=== PATIENT | female | born 1995 | race Caucasian/White ===

== ENCOUNTER 2017-04-30 03:03 | Emergency (ER) | payer OTHER ==
[2017-04-30] MEDS ORDERED: LIDOCAINE 2% VISCOUS SOLN 20 ML UDCUP PO ONE (03:40)
[2017-04-30] MEDS ORDERED: MAG HYDROX/AL HYDROX/SIMETH SUSP 30 ML UDCUP PO ONE (03:40)
[2017-04-30] MEDS ORDERED: NORMAL SALINE 1000 ML 1,000 ML IV ONE ×2 (03:40→06:05)
[2017-04-30] MEDS ORDERED: METOCLOPRAMIDE HCL ORAL SOLN 10 MG/10 ML UDCUP PO ONE (03:40)
--- NOTE | 2017-04-30 04:03 | ER Document Report ---
ED GI/ - General Chief Complaint: Chest Pain Stated Complaint: CHEST PAIN Time Seen by Provider: 04/30/17 03:27 Notes: Patient is a 21-year-old female comes emergency department for chief complaint of vomiting and a burning pain in the top of her abdomen, chest, and throat. She states she vomited 5 times today. She states over the past week she has vomited frequently. She is at 9 weeks gestation. She was seen recently at [facility], given Zofran and Phenergan but states that she just vomits it up. She denies cramping, pain of the lower abdomen, vaginal bleeding, flank pain, dysuria, vaginal discharge. She denies fever. She is on no daily medications other than prenatals otherwise, she denies any surgeries or medical history otherwise. TRAVEL OUTSIDE OF THE [place] IN LAST 30 DAYS: No - Related Data Allergies/Adverse Reactions: No Known Allergies Allergy (Verified 04/30/17 03:04) Past Medical History - General Information source: Patient - Social History Smoking Status: Never Smoker Frequency of alcohol use: None Drug Abuse: None Lives with: Family Family History: Reviewed & Not Pertinent - Medical History Medical History: Negative Surgical Hx: Negative - Immunizations Immunizations up to date: Yes Hx Diphtheria, Pertussis, Tetanus Vaccination: Yes Review of Systems - Review of Systems Constitutional: See HPI EENT: No symptoms reported Cardiovascular: See HPI Respiratory: No symptoms reported Gastrointestinal: See HPI Genitourinary: See HPI Female Genitourinary: See HPI Musculoskeletal: No symptoms reported Skin: No symptoms reported Hematologic/Lymphatic: No symptoms reported Neurological/Psychological: No symptoms reported Physical Exam - Vital signs Vitals: Temp Pulse Resp BP Pulse Ox 98.2 F 84 18 117/72 100 04/30/17 03:09 04/30/17 03:09 04/30/17 03:09 04/30/17 03:09 04/30/17 03:09 - General General appearance: Appears well In distress: None - Patient is thin but otherwise unremarkable in appearance - HEENT Head: Normocephalic, Atraumatic Eyes: Normal Conjunctiva: Normal Extraocular movements intact: Yes Eyelashes: Normal Pupils: PERRL Mucous membranes: Dry Pharynx: Normal Neck: Normal - Respiratory Respiratory status: No respiratory distress. No: Respiratory distress Breath sounds: Normal. No: Decreased air movement - Cardiovascular Rhythm: Regular. No: Tachycardia Heart sounds: Normal auscultation, S1 appreciated, S2 appreciated Gallop: None auscultated Normal capillary refill: Yes - Abdominal Inspection: Normal Tenderness: Tender - Minimal generalized upper abdominal tenderness, lower abdomen is completely benign. No: McBurney's point, Tay's sign, Guarding - Back Back: Normal, Nontender. No: Tender - Extremities General upper extremity: Normal inspection, Nontender, Normal strength, Normal temperature General lower extremity: Normal inspection, Nontender, Normal strength, Normal temperature. No: Edema - Neurological Neuro grossly intact: Yes Cognition: Normal Orientation: AAOx4 Andrey Coma Scale Eye Opening: Spontaneous Andrey Coma Scale Verbal: Oriented Buchanan Coma Scale Motor: Obeys Commands Buchanan Coma Scale Total: 15 Speech: Normal Motor strength normal: LUE, RUE, LLE, RLE Sensory: Normal - Psychological Associated symptoms: Normal affect, Normal mood - Skin Skin Moisture: Dry Skin Color: Pale Course - Re-evaluation Re-evalutation: Patient is well-appearing, unremarkable vital signs, generalized upper abdominal tenderness which is nonspecific with no guarding. She does appear slightly pale. Dry mucous membranes. Given IV fluids, will provide with medication. CBC generally unremarkable, chemistry generally unremarkable with slightly low bicarbonate, urinalysis shows 80 ketones and elevated specific gravity but no infection. Positive test. No lower abdominal pain, bleeding, or signs of ectopic . EKG unremarkable. After GI cocktail patient's symptoms resolved. Slightly after this patient stating her stomach was hurting a little bit, given Carafate and then symptoms completely resolved. She is tolerating fluids without any difficulty now. She states she feels great now. Provided with medications, she has METALLURGICAL ENGINEER follow-up , discussed return precautions, patient states gratefulness and agreement - Vital Signs Vital signs: Temp Pulse Resp BP Pulse Ox 98.2 F 84 13 116/66 100 04/30/17 03:09 04/30/17 03:09 04/30/17 07:01 04/30/17 07:00 04/30/17 07:01 - Laboratory Result Diagrams: 04/30/17 03:56 04/30/17 03:56 Laboratory results interpreted by me: 04/30/17 04/30/17 04/30/17 03:56 03:56 05:05 WBC 12.6 H Absolute Neutrophils 9.4 H Carbon Dioxide 21 L Calcium 10.4 H Urine Protein 30 H Urine Ketones 80 H Urine HCG, Qual POSITIVE H Discharge - Discharge Clinical Impression: Vomiting affecting , Dehydration Condition: Stable Disposition: HOME, SELF-CARE Additional Instructions: You have been rehydrated, continue rehydration, because of upper gastrointestinal tract pain I recommend taking the Pepcid and Carafate for the next several days. Start with bland food and slowly progress. Take Zofran for nausea, if needed use the Phenergan suppository. Benadryl can also help with nausea. Follow-up with primary care/METALLURGICAL ENGINEER. Return if you worsen including uncontrolled vomiting, fever, severe abdominal pain, vomiting blood, black stools, or any other concerning or worsening symptoms. Prescriptions: Famotidine [Pepcid 20 mg Tablet] 20 mg PO BID #20 tablet Ondansetron [Zofran Odt 4 mg Tablet] 1 - 2 tab PO Q4H PRN #20 tab.rapdis PRN Reason: For Nausea/Vomiting Promethazine HCl [Phenergan 25 mg Supp.rect] 1 supp NC Q6H #20 supp.rect Sucralfate [Carafate 1 gm Tablet] 1 gm PO QID #20 tablet
[2017-04-30 04:12] LABS: ABSOLUTE LYMPHOCYTES (AUTO) 2.2 10^3/uL (0.5-4.7); ABSOLUTE NEUT (AUTO) 9.4 10^3/uL (1.7-8.2); BASOPHILS % (AUTO) 0.4 % (0-2); EOSINOPHILS % (AUTO) 0.2 % (0-6); HEMATOCRIT 40.7 % (36.0-47.0); HEMOGLOBIN 14.2 g/dL (12.0-15.5); LYMPHOCYTES % (AUTO) 17.2 % (13-45); MEAN CORPUSCULAR HEMOGLOBIN 31.2 pg (27.0-33.4); MEAN CORPUSCULAR HGB CONC 34.8 g/dL (32.0-36.0); MEAN CORPUSCULAR VOLUME 90 fl (80-97); MONOCYTES % (AUTO) 7.6 % (3-13); PLATELET COUNT 262 10^3/uL (150-450); RED BLOOD COUNT 4.54 10^6/uL (3.72-5.28); RED CELL DISTRIBUTION WIDTH 13.4 % (11.5-14.0); SEGMENTED NEUTROPHILS % (AUTO) 74.6 % (42-78); TOTAL CELLS COUNTED % (AUTO) 100 %; WHITE BLOOD COUNT 12.6 10^3/uL (4.0-10.5)
[2017-04-30 04:29] LABS: BLOOD UREA NITROGEN 7 mg/dL (7-20); CALCIUM 10.4 mg/dL (8.4-10.2); CARBON DIOXIDE 21 mmol/L (22-30); CHLORIDE 102 mmol/L (98-107); GLUCOSE 83 mg/dL (75-110); POTASSIUM 3.8 mmol/L (3.6-5.0)
[2017-04-30 04:30] LABS: ALANINE AMINOTRANSFERASE 24 U/L (9-52); ALKALINE PHOSPHATASE 43 U/L (38-126); ANION GAP 16 (5-19); ASPARTATE AMINO TRANSFERASE 19 U/L (14-36); BILIRUBIN,DIRECT 0.3 mg/dL (0.0-0.4); BILIRUBIN,TOTAL 0.6 mg/dL (0.2-1.3)
[2017-04-30] MEDS ORDERED: ONDANSETRON HCL INJ/PF 4 MG/2 ML SDV IV ONE (04:57)
[2017-04-30] MEDS ORDERED: SUCRALFATE 1 GM TABLET PO ONE (04:57)
[2017-04-30 05:58] LABS: APPEARANCE,URINE SLIGHTLY-CLOUDY; BILIRUBIN,URINE NEGATIVE (NEGATIVE); COLOR,URINE YELLOW; GLUCOSE, URINE NEGATIVE (NEGATIVE); KETONES,URINE 80 mg/dL (NEGATIVE); LEUKOCYTE ESTERASE,URINE NEGATIVE (NEGATIVE); NITRITE,URINE NEGATIVE (NEGATIVE); PROTEIN,URINE 30 mg/dL (NEGATIVE); URINE SPECIFIC GRAVITY 1.029; UROBILINOGEN,URINE NEGATIVE mg/dL (<2.0)
[2017-04-30 07:39] VITALS: BP 118/80
--- NOTE | 2017-04-30 08:06 | EKG REPORT ---
SEVERITY:- NORMAL ECG - SINUS RHYTHM : Confirmed by: John Pizano MD 30-Apr-2017 08:06:19
== END 2017-04-30 07:39 | disposition home or self-care (01) ==
LOC: ER 03:03
DX: O99.281 Endocrine, nutritional and metabolic diseases complicating pregnancy, first trimester (principal); O21.9 Vomiting of pregnancy, unspecified; O99.89 Other specified diseases and conditions complicating pregnancy, childbirth and the puerperium; R07.9 Chest pain, unspecified; R10.9 Unspecified abdominal pain; R07.0 Pain in throat; Z3A.09 9 weeks gestation of pregnancy
CPT/HCPCS: 93005; 99285; 96361; 96374; 36415; 85025; 81025; 80053; 81001; 93010; J3490; J2405; J7030

== ENCOUNTER 2017-10-21 02:01 | Observation (INO) | payer OTHER ==
[2017-10-21 02:33] LABS: AMORPHOUS SEDIMENT,URINE TRACE /HPF; APPEARANCE,URINE SLIGHTLY-CLOUDY; BILIRUBIN,URINE NEGATIVE (NEGATIVE); COLOR,URINE YELLOW; GLUCOSE, URINE NEGATIVE (NEGATIVE); KETONES,URINE 20 mg/dL (NEGATIVE); LEUKOCYTE ESTERASE,URINE MODERATE (NEGATIVE); NITRITE,URINE NEGATIVE (NEGATIVE); PROTEIN,URINE NEGATIVE (NEGATIVE); URINE SPECIFIC GRAVITY 1.009; UROBILINOGEN,URINE NEGATIVE mg/dL (<2.0)
[2017-10-21] MEDS ORDERED: MAGNESIUM SULFATE 4 GM/100 ML RTUPB IV ONE ×2 (02:36→02:55)
[2017-10-21] MEDS ORDERED: BETAMET ACET/BETAMET NA INJ 6 MG/1 ML IM ONE (02:40)
[2017-10-21] MEDS ORDERED: BETAMET ACET/BETAMET NA INJ 6 MG/1 ML ONE (02:42)
[2017-10-21 02:45] LABS: URINE AMPHETAMINES SCREEN NEGATIVE; URINE BARBITURATES SCREEN NEGATIVE; URINE BENZODIAZEPINES SCREEN NEGATIVE; URINE COCAINE SCREEN NEGATIVE; URINE MARIJUANA (THC) SCREEN NEGATIVE; URINE METHADONE SCREEN NEGATIVE; URINE PHENCYCLIDINE SCREEN NEGATIVE
[2017-10-21] MEDS: RINGERS SOLUTION,LACTATED 1,000 ML IV PRN ×2 (02:52→17:12)
[2017-10-21] MEDS ORDERED: MAGNESIUM SULFATE 20 GM/500 ML RTUINJ IV ONE ×3 (02:55→23:57)
[2017-10-21 03:11] LABS: ABSOLUTE LYMPHOCYTES (AUTO) 2.2 10^3/uL (0.5-4.7); ABSOLUTE MONOCYTES (AUTO) 0.8 10^3/uL (0.1-1.4); ABSOLUTE NEUT (AUTO) 7.5 10^3/uL (1.7-8.2); BASOPHILS % (AUTO) 0.5 % (0-2); EOSINOPHILS % (AUTO) 0.2 % (0-6); HEMATOCRIT 30.4 % (36.0-47.0); HEMOGLOBIN 10.7 g/dL (12.0-15.5); LYMPHOCYTES % (AUTO) 21.1 % (13-45); MEAN CORPUSCULAR HEMOGLOBIN 31.6 pg (27.0-33.4); MEAN CORPUSCULAR HGB CONC 35.2 g/dL (32.0-36.0); MEAN CORPUSCULAR VOLUME 90 fl (80-97); MONOCYTES % (AUTO) 7.5 % (3-13); PLATELET COUNT 211 10^3/uL (150-450); RED BLOOD COUNT 3.38 10^6/uL (3.72-5.28); RED CELL DISTRIBUTION WIDTH 14.3 % (11.5-14.0); SEGMENTED NEUTROPHILS % (AUTO) 70.7 % (42-78); TOTAL CELLS COUNTED % (AUTO) 100 %; WHITE BLOOD COUNT 10.6 10^3/uL (4.0-10.5)
[2017-10-21] MEDS: MAGNESIUM SULFATE 20 GM/500 ML RTUINJ IV PRN ×2 (03:24→13:25)
[2017-10-21] MEDS ORDERED: MISOPROSTOL 0.2 MG TABLET ONE (03:31)
[2017-10-21] MEDS ORDERED: OXYTOCIN/NORMAL SALINE 0 UNIT/0 ML RTUINJ ONE (03:31)
[2017-10-21] MEDS ORDERED: LIDOCAINE 1% INJ-PF (10 MG/ML) 30 ML SDV ONE (03:31)
[2017-10-21] MEDS ORDERED: PENICILLIN G-K 5 MILLION UNIT VIAL ONE ×2 (03:57→08:06)
--- NOTE | 2017-10-21 08:27 | Admission Physical ---
Datetime Report Generated by CPN: 10/21/2017 04:04 CURRENT ADMISSION Chief Complaint: Uterine Contractions Indication for Induction: Not Applicable Admit Impression : , Intrauterine ; Observation/Evaluation Admit Plan: Admit to Unit Admit Plan- Other: begin magnesium, steroids and antibiotics. ALLERGIES Medication Allergies: No Medication Allergies: No Known Allergies (04/30/2017) Latex: No Latex Allergies Food Allergies: N/A Environmental Allergies: N/A OBSTETRICAL HISTORY EDC: 12/04/2017 00:00 : 5 Para: 4 Term: 3 : 1 SAB: 0 IAB: 0 Ectopic: 0 Livin Cesareans: 0 VBACs: 0 Multiple Births: 0 Gestational Diabetes: No Rh Sensitization: No Incompetent Cervix: No BRANDY: No Infertility: No ART Treatment: No Uterine Anomaly: No IUGR: No Hx Previous C/S: No Macrosomia: No Hx Loss/Stillborn: No PIH: No Hx : No Placenta Previa/Abruption: No Depression/PP Depression: No PTL/PROM: No Post Hemorrhage: No Current Procedures: Ultrasound; NST Obstetrical History Comments: G1- 2009 at term, 8lbs 7oz, male, epidural G2- 2011 at term, 7lbs 3oz, male G3- 2014 at term, 8lbs 14oz male G4- 2016 at 36 weeks, 7lbs 3oz, male G5- current SEE RECORDS Alcohol: No Marijuana : No Cocaine: No Other Illicit Drugs: No Cigarettes: Never Smoker. [id number] MEDICAL HISTORY Diabetes: No Blood Transfusion: No Pulmonary Disease (Asthma, TB): No Breast Disease: No Hypertension: No Fish Checker Surgery: No Heart Disease: No Hosp/Surgery: Yes Autoimmune Disorder: No Anesthetic Complications: No Kidney Disease: No Abnormal Pap Smear: No Neuro/Epilepsy: No Psychiatric Disorders: No Other Medical Diseases: No Hepatitis/Liver Disease: No Significant Family History: No Varicosities/Phlebitis: No Trauma/Violence : No Thyroid Dysfunction: No Medical History Comments: childbirth x4, celiacs disease, Isoimmunization G2-G4 INFECTIOUS HISTORY Gonorrhea: No Genital Herpes: No Chlamydia: No Tuberculosis: No Syphilis: No Hepatitis: No HIV/AIDS Exposure: No Rash or Viral Illness: No HPV: Yes PHYSICAL EXAM General: Normal HEENT: Normal Neurologic: Normal Thyroid: Normal Heart: Normal Lungs: Normal Breast: Deferred Back: Normal Abdomen: Normal Genitourinary Exam: Normal Extremities: Normal DTRs: Normal Pelvic Type: Adequate Vital Signs: Reviewed VAGINAL EXAM Dilatation: 2 Effacement: 50 Station: -2 FETUS A EGA: 33.5 Monitoring: External US FHR- Baseline: 130 Variability: Moderate 6-25bpm Decelerations: None FHR Category: Category I Presentation: Vertex Admit Comment: Admit and plan as above PLANS FOR LABOR AND DELIVERY Labor and Delivery: None Pain Management: None Feeding Preference: Breast Benefit of Breast Feed Discussed: Yes Circumcision: N/A INFORMED CONSENT Signature: with User ID: [email or web address]
[2017-10-21 09:06] LABS: CHLAM PCR NOT DETECTED (NOT DETECT)
[2017-10-21 09:15] LABS: GON PCR NOT DETECTED (NOT DETECT)
[2017-10-21] MEDS ORDERED: ACETAMINOPHEN 325 MG TABLET PO PRN (10:51)
[2017-10-21] MEDS ORDERED: ACETAMINOPHEN 325 MG TABLET ONE (10:55)
--- NOTE | 2017-10-21 12:16 | L&D Progress Notes ---
PROGRESS NOTES Datetime Report Generated by CPN: 10/21/2017 12:15 PROGRESS NOTE Comment: Discussed POC with pt and hsb, irreg uc's, Cat 1 strip, lst baby was delivered at 36 weeks VAGINAL EXAM Dilatation: 2 Effacement: 50 Station: -2 FETUS A : 34.0 Presentation: Vertex SIGNATURE SIGNATURE: [id number] SIGNATURE: [id number] Assignment: Adriel Fonseca MD Signature: with User ID: [email or web address] : with User ID: [email or web address]
[2017-10-21] MEDS ORDERED: FLUCONAZOLE 100 MG TABLET PO ONE (14:45)
[2017-10-22] MEDS: MAGNESIUM SULFATE 20 GM/500 ML RTUINJ IV PRN
[2017-10-22] MEDS ORDERED: ACETAMINOPHEN 325 MG TABLET ONE (00:16)
[2017-10-22] MEDS ORDERED: BETAMET ACET/BETAMET NA INJ 6 MG/1 ML IM ONE (02:20)
[2017-10-22] MEDS ORDERED: BETAMET ACET/BETAMET NA INJ 6 MG/1 ML ONE ×2 (03:16→04:42)
[2017-10-22] MEDS ORDERED: NIFEDIPINE 10 MG CAPSULE ONE (08:46)
[2017-10-22] MEDS ORDERED: NIFEDIPINE 10 MG CAPSULE PO ONE (08:48)
--- NOTE | 2017-10-22 09:09 | L&D Progress Notes ---
PROGRESS NOTES Datetime Report Generated by CPN: 10/22/2017 09:09 PROGRESS NOTE Impression Other: IUP @ 33w6d Procedures: Sterile Vag Exam Plan: Discharge Informed Consent Obtained: Risks, Benefits and Alternatives Discussed Vital Signs : Reviewed; Within Normal Limits Comment: S: pt. comfortable reports decreased in pain and intensity of contractions O:vss, cervix as stated, irregular uc A: IUP @ 33w6d status post mag and betamethasone for suspected labor- stable P: Discussed with Dr. Levine, d/c home with procardia 10mg q4hr for contractions prn, first dose now. Strict PTL precautions reviewed. Pt. asked questions and verbalized understanding, keep scheduled appt for 10/26. RTC/L_D earlier prn VAGINAL EXAM Dilatation: 3 Effacement: 60 Station: -2 Contractions: irregular MEMBRANES Membranes: Intact FETUS A FHR - Baseline: 135 Monitoring: External US Variability: Moderate 6-25bpm Accelerations: 15X15 Decelerations: None FHR Category: Category I FETUS C SIGNATURE: [id number];[id number] Assignment: Daiana Levine MD Signature: with User ID: [email or web address] : with User ID: [email or web address]
== END 2017-10-22 09:40 | disposition home or self-care (01) ==
LOC: LC 02:01 → LR 03:01
PROVIDERS: ADMIT Obstetrics & Gynecology; ATTEND Obstetrics & Gynecology
PROC: 4A0HXCZ Measurement of Products of Conception, Cardiac Rate, External Approach (ICD-10-PCS; principal; 2017-10-21)
DX: O60.03 Preterm labor without delivery, third trimester (principal); O09.213 Supervision of pregnancy with history of pre-term labor, third trimester; O98.813 Other maternal infectious and parasitic diseases complicating pregnancy, third trimester; B37.9 Candidiasis, unspecified; O26.893 Other specified pregnancy related conditions, third trimester; K90.0 Celiac disease; Z3A.33 33 weeks gestation of pregnancy
CPT/HCPCS: 59025; 86900; 86901; 36415; 86850; 86922; 85025; 86592; 81001; 87081; 80307; 86920; 87491; 87591; J3475 ×2; J3490; J2540; J0702 ×2; J2590

== ENCOUNTER → 2017-11-08 | Outpatient (CLI) | payer OTHER | LOC: OD 17:02 | PROVIDERS: ATTEND Midwife | DX: O99.810 Abnormal glucose complicating pregnancy (principal) | CPT/HCPCS: 36415; 83036 ==

== ENCOUNTER 2017-11-23 08:21 | Outpatient (CLI) | payer OTHER ==
[2017-11-23 08:50] LABS: APPEARANCE,URINE SLIGHTLY HAZY; BILIRUBIN,URINE NEGATIVE (NEGATIVE); COLOR,URINE YELLOW; GLUCOSE, URINE NEGATIVE (NEGATIVE); KETONES,URINE 100 mg/dL (NEGATIVE); LEUKOCYTE ESTERASE,URINE SMALL (NEGATIVE); NITRITE,URINE NEGATIVE (NEGATIVE); PROTEIN,URINE 30 mg/dL (NEGATIVE); UROBILINOGEN,URINE NEGATIVE mg/dL (<2.0)
[2017-11-23 09:09] LABS: URINE AMPHETAMINES SCREEN NEGATIVE; URINE BARBITURATES SCREEN NEGATIVE; URINE BENZODIAZEPINES SCREEN NEGATIVE; URINE COCAINE SCREEN NEGATIVE; URINE METHADONE SCREEN NEGATIVE; URINE PHENCYCLIDINE SCREEN NEGATIVE
--- NOTE | 2017-11-23 09:13 | Non Stress Test Report ---
Non Stress Test Datetime Report Generated by CPN: 11/23/2017 09:13 DEMOGRAPHIC EGA NST: 38.3 INDICATION Indication for Study: Other Indication for Study (NST) Other: Labor Check MONITORING Monitor Explained: Monitor Explained; Test Explained; Patient Verbalized Understanding Time on Monitor: 11/23/2017 08:31 Time off Monitor: 11/23/2017 08:59 NST Duration: 28 NST INTERVENTIONS NST Interventions: PO Hydration Physician Notified NST: A Plasencia CNM BABY A: [id number] BABY A Movement : Present Contraction Frequency : irregular FHR Baseline : 135 Accelerations : 15X15 Decelerations : None Variability : Moderate 6-25bpm NST Review and Verified By : Rom Levine RN NST Results: Reactive NST REPORT Report Trigger: Send Report
[2017-11-23 09:16] LABS: URINE MARIJUANA (THC) SCREEN UNCONFIRMED POSITIVE
== END 2017-11-23 13:38 | disposition home or self-care (01) ==
LOC: LC 08:21
PROVIDERS: ATTEND Obstetrics & Gynecology
PROC: 4A1HXCZ Monitoring of Products of Conception, Cardiac Rate, External Approach (ICD-10-PCS; principal; 2017-11-23)
DX: O60.03 Preterm labor without delivery, third trimester (principal); O98.813 Other maternal infectious and parasitic diseases complicating pregnancy, third trimester; B37.9 Candidiasis, unspecified; Z3A.38 38 weeks gestation of pregnancy
CPT/HCPCS: 59025; 81005; 80307; G0480 ×2; 80349

== ENCOUNTER 2017-11-23 23:37 | Inpatient (IN) | payer OTHER ==
[2017-11-24] MEDS ORDERED: RINGERS SOLUTION,LACTATED 1,000 ML IV PRN (00:09)
[2017-11-24] MEDS ORDERED: MISOPROSTOL 0.2 MG TABLET ONE (00:25)
[2017-11-24] MEDS ORDERED: LIDOCAINE 1% INJ-PF (10 MG/ML) 30 ML SDV ONE (00:26)
[2017-11-24] MEDS ORDERED: OXYTOCIN/NORMAL SALINE 20 UNIT/1,000 ML RTUINJ ONE (00:26)
[2017-11-24 01:04] LABS: ABSOLUTE LYMPHOCYTES (AUTO) 2.2 10^3/uL (0.5-4.7); ABSOLUTE MONOCYTES (AUTO) 1.2 10^3/uL (0.1-1.4); ABSOLUTE NEUT (AUTO) 10.8 10^3/uL (1.7-8.2); BASOPHILS % (AUTO) 0.2 % (0-2); EOSINOPHILS % (AUTO) 0.2 % (0-6); HEMATOCRIT 33.6 % (36.0-47.0); HEMOGLOBIN 11.6 g/dL (12.0-15.5); LYMPHOCYTES % (AUTO) 15.3 % (13-45); MEAN CORPUSCULAR HEMOGLOBIN 30.4 pg (27.0-33.4); MEAN CORPUSCULAR HGB CONC 34.5 g/dL (32.0-36.0); MEAN CORPUSCULAR VOLUME 88 fl (80-97); MONOCYTES % (AUTO) 8.3 % (3-13); PLATELET COUNT 281 10^3/uL (150-450); RED BLOOD COUNT 3.82 10^6/uL (3.72-5.28); RED CELL DISTRIBUTION WIDTH 15.1 % (11.5-14.0); TOTAL CELLS COUNTED % (AUTO) 100 %; WHITE BLOOD COUNT 14.2 10^3/uL (4.0-10.5)
--- NOTE | 2017-11-24 01:08 | Admission Physical ---
Datetime Report Generated by CPN: 11/24/2017 01:08 CURRENT ADMISSION Chief Complaint: Uterine Contractions Indication for Induction: Not Applicable Admit Impression : Term, Intrauterine ; Active Labor Admit Plan: Admit to Unit; Initiate Labor Augmentation Protocol Admit Plan- Other: begin magnesium, steroids and antibiotics. ALLERGIES Medication Allergies: No Medication Allergies: latex (11/23/2017) Latex: No Latex Allergies Food Allergies: N/A Environmental Allergies: N/A OBSTETRICAL HISTORY EDC: 12/04/2017 00:00 : 5 Para: 4 Term: 3 : 1 SAB: 0 IAB: 0 Ectopic: 0 Livin Cesareans: 0 VBACs: 0 Multiple Births: 0 Gestational Diabetes: Yes Rh Sensitization: No Incompetent Cervix: No BRANDY: No Infertility: No ART Treatment: No Uterine Anomaly: No IUGR: No Hx Previous C/S: No Macrosomia: No Hx Loss/Stillborn: No PIH: No Hx : No Placenta Previa/Abruption: No Depression/PP Depression: No PTL/PROM: No Post Hemorrhage: No Current Procedures: Ultrasound; NST Obstetrical History Comments: G1- 2009 at term, 8lbs 7oz, male, epidural G2- 2011 at term, 7lbs 3oz, male G3- 2014 at term, 8lbs 14oz male G4- 2016 at 36 weeks, 7lbs 3oz, male G5- current SEE RECORDS Alcohol: No Marijuana : No Cocaine: No Other Illicit Drugs: No Cigarettes: Never Smoker. [id number] MEDICAL HISTORY Diabetes: No Diabetes Type: Gestational Diabetes Blood Transfusion: No Pulmonary Disease (Asthma, TB): No Breast Disease: No Hypertension: No Tenant Relations Coordinator Surgery: No Heart Disease: No Hosp/Surgery: Yes Autoimmune Disorder: No Anesthetic Complications: No Kidney Disease: No Abnormal Pap Smear: No Neuro/Epilepsy: No Psychiatric Disorders: No Other Medical Diseases: No Hepatitis/Liver Disease: No Significant Family History: No Varicosities/Phlebitis: No Trauma/Violence : No Thyroid Dysfunction: No Medical History Comments: childbirth x4, celiacs disease, Isoimmunization G2-G4 INFECTIOUS HISTORY Gonorrhea: No Genital Herpes: No Chlamydia: No Tuberculosis: No Syphilis: No Hepatitis: No HIV/AIDS Exposure: No Rash or Viral Illness: No HPV: Yes PHYSICAL EXAM General: Normal HEENT: Normal Neurologic: Normal Thyroid: Normal Heart: Normal Lungs: Normal Breast: Normal Back: Normal Abdomen: Normal Genitourinary Exam: Normal Extremities: Normal DTRs: Normal Pelvic Type: Adequate Vital Signs: Reviewed; Within Normal Limits VAGINAL EXAM Dilatation: 6 Effacement: 100 Station: -1 Contraction Comments: irregular MEMBRANES Pooling: Negative Membranes: Intact FETUS A EGA: 38.4 Monitoring: External US FHR- Baseline: 150 Variability: Moderate 6-25bpm Accelerations: 15X15 Decelerations: None FHR Category: Category I Estimated Weight (gm): 3200 Presentation: Vertex Admit Comment: Admit and plan as above PLANS FOR LABOR AND DELIVERY Labor and Delivery: None Pain Management: Epidural Feeding Preference: Both Benefit of Breast Feed Discussed: Yes Circumcision: N/A INFORMED CONSENT Informed Consent Obtained: Risks, Benefits and Alternatives Discussed Signature: with User ID: [email or web address]
[2017-11-24 01:12] LABS: APPEARANCE,URINE CLEAR; BILIRUBIN,URINE NEGATIVE (NEGATIVE); COLOR,URINE YELLOW; GLUCOSE, URINE NEGATIVE (NEGATIVE); KETONES,URINE 100 mg/dL (NEGATIVE); LEUKOCYTE ESTERASE,URINE LARGE (NEGATIVE); NITRITE,URINE NEGATIVE (NEGATIVE); PROTEIN,URINE 30 mg/dL (NEGATIVE); UROBILINOGEN,URINE NEGATIVE mg/dL (<2.0)
[2017-11-24 01:13] LABS: URINE SPECIFIC GRAVITY 1.022
[2017-11-24] MEDS ORDERED: PROMETHAZINE HCL 25 MG TABLET PO PRN (01:13)
[2017-11-24] MEDS ORDERED: MAGNESIUM HYDROXIDE SUSP 30 ML UDCUP PO PRN (01:13)
[2017-11-24] MEDS ORDERED: GLYCERIN/WITCH HAZEL LEAF 1 EACH MED..PAD TP PRN (01:13)
[2017-11-24] MEDS ORDERED: DIBUCAINE 1% OINTMENT 28 GM TP PRN (01:13)
[2017-11-24] MEDS ORDERED: ZOLPIDEM TARTRATE 5 MG TABLET PO PRN (01:13)
[2017-11-24] MEDS ORDERED: PROMETHAZINE HCL INJ 25 MG/1 ML VIAL IV PRN ×2 (01:13→15:30)
[2017-11-24] MEDS ORDERED: DIPH/PERTUSS(ACELL)/TETANUS VAC/PF 0.5 ML SYR (>=10YO) IM PRN ×2 (01:13→15:30)
[2017-11-24] MEDS ORDERED: PROMETHAZINE HCL 25 MG SUPP.RECT PR PRN (01:13)
[2017-11-24] MEDS ORDERED: BENZOCAINE/MENTHOL AEROSOL SPRAY 56 ML TOP PRN (01:13)
[2017-11-24] MEDS ORDERED: DIPHENHYDRAMINE HCL 25 MG CAPSULE PO PRN (01:13)
[2017-11-24] MEDS ORDERED: ACETAMINOPHEN WITH CODEINE #3 TABLET PO PRN (01:13)
[2017-11-24] MEDS ORDERED: PSEUDOEPHEDRINE HCL 30 MG TABLET PO PRN (01:13)
[2017-11-24] MEDS ORDERED: OXYTOCIN/NORMAL SALINE 20 UNIT/1,000 ML RTUINJ IV PRN (01:13)
[2017-11-24] MEDS ORDERED: ACETAMINOPHEN 650 MG SUPP.RECT PR PRN (01:13)
[2017-11-24] MEDS ORDERED: MEASLES,MUMPS&RUBELLA VACC/PF 0.5 ML VIAL SUBCUT PRN ×2 (01:13→15:30)
[2017-11-24] MEDS ORDERED: NA PHOS,M-B/NA PHOS,DI-BA (ADULT) 133 ML ENEMA PR PRN (01:13)
[2017-11-24 01:37] LABS: URINE AMPHETAMINES SCREEN NEGATIVE; URINE BARBITURATES SCREEN NEGATIVE; URINE BENZODIAZEPINES SCREEN NEGATIVE; URINE COCAINE SCREEN NEGATIVE; URINE METHADONE SCREEN NEGATIVE; URINE PHENCYCLIDINE SCREEN NEGATIVE
[2017-11-24 01:40] LABS: URINE MARIJUANA (THC) SCREEN UNCONFIRMED POSITIVE
--- NOTE | 2017-11-24 02:57 | Delivery Summary ---
Del Sum A-C Datetime Report Generated by CPN: 11/24/2017 02:57 DELIVERY PERSONNEL DELIVERY PERSONNEL: [id number] Delivery Doctor:: Daiana Levine MD Labor and Delivery Nurse:: Yary Dale RNrn orthopedic Nurse:: Renee Loredo RN Plant Operations Worker:: Bobbi Hernandez RN Nursery Nurse:: Danyelle Pardo RN Program Management Professional/HOSPITAL INTERN: Airam Newman, ST MATERNAL INFORMATION Delivery Anesthesia: None Medications After Delivery: Pitocin Drip 20 Units/1000ml NSS Estimated Blood Loss (ml): 200 Maternal Complications: Precipitous Labor (<3hrs) LABOR SUMMARY EDC: 12/04/2017 00:00 No. Babies in Womb: 1 Attempted: No Labor Anesthesia: None LABOR INFORMATION Reason for Induction: Not Applicable Onset of Labor: 11/23/2017 23:42 Complete Dilatation: 11/24/2017 00:47 Oxytocin: N/A Group B Beta Strep: NEGATIVE Steroids Given: Full Course; > 24 Hours before Delivery Reason Steroids Not Administered: Not Applicable MEMBRANES Membranes Rupture Method: Spontaneous Rupture of Membranes: 11/24/2017 00:47 Length of Rupture (hr): 0.03 Amniotic Fluid Color: Clear Amniotic Fluid Amount: Moderate Amniotic Fluid Odor: Normal STAGES OF LABOR Stage 1 hr: 1 Stage 1 min: 5 Stage 2 hr: 0 Stage 2 min: 2 Stage 3 hr: 0 Stage 3 min: 6 Total Time in Labor hr: 1 Total Time in Labor min: 13 VAGINAL DELIVERY Episiotomy: None Laceration #1: None Laceration Extension #1: N/A Laceration Repair: Not Applicable Sponge Count Correct: N/A Sharps Count Correct: N/A CSECTION DELIVERY Primary Indication: N/A Secondary Indication: N/A CSection Incidence: N/A Labor: N/A Elective: N/A CSection Incision: N/A BABY A INFORMATION Delivery Date/Time: 11/24/2017 00:49 Method of Delivery: Vaginal Born in Route : No : N/A Forceps: N/A Vacuum Extraction: N/A Shoulder Dystocia : No PRESENTATION/POSITION BABY A Presentation: Cephalic Cephalic Presentation: Vertex Vertex Position: Right Occipital Anterior Breech Presentation: N/A PLACENTA INFORMATION BABY A Placenta Delivery Time : 11/24/2017 00:55 Placenta Method of Delivery: Spontaneous Placenta Status: Delivered SCORES BABY A Heart Rate 1 min: >100 bpm Resp Effort 1 min: Good Cry Reflex Irritability 1 min: Cough or Sneeze or Pulls Away Muscle Tone 1 min: Active Motion Color 1 min: Blue/Pale Resuscitation Effort 1 min: Tactile Stimulation SCORE 1 MIN: 8 Heart Rate 5 min: >100 bpm Resp Effort 5 min: Good Cry Reflex Irritability 5 min: Cough or Sneeze or Pulls Away Muscle Tone 5 min: Active Motion Color 5 min: Body Rewey, Extremities Blue Resuscitation Effort 5 min: Tactile Stimulation SCORE 5 MIN: 9 INFORMATION BABY A Gestational Age at Delivery: 38.4 Gestational Status: Early Term- 37- 38.6 Weeks Outcome : Liveborn Condition : Stable Infant Sex: Female IDENTIFICATION BABY A Verification Date/Time: 11/24/2017 01:02 ID Band Number: [id number] Mother's Name Verified: Yes RN Verifying : Clari DALE RN, Rom Loredo RN WEIGHT/LENGTH BABY A Birthweight (gm): 2920 Infant Weight (lb): 6 Weight (oz): 7 Infant Length (in): 18.50 Length (cm): 46.99 CORD INFORMATION BABY A No. Cord Vessels: 3 Nuchal Cord : Around Neck x1, Tight Cord Blood Taken: Yes-For Storage (Mom's Blood type +) Infant Suction: Mouth; Nose ASSESSMENT BABY A Infant Complications: None Physical Findings at Delivery: Within Normal Limits Infant Respirations: Appears Normal Skin to Skin: No Solar Sales Energy Advisor/ALS Called : No Infant Care By: Slade Mitchell RN Transferred To: Remains with Mother BABY B INFORMATION : N/A SIGNATURES Signature: with User ID: [email or web address]
[2017-11-24] MEDS: IBUPROFEN 800 MG TABLET PO SCH ×3 (05:32→21:28)
[2017-11-24] MEDS: ACETAMINOPHEN WITH CODEINE #3 TABLET PO PRN ×2 (08:33→18:36)
[2017-11-24] MEDS: FAMOTIDINE 20 MG TABLET PO SCH ×2 (10:21→21:29)
[2017-11-24] MEDS: DOCUSATE SODIUM 100 MG CAPSULE PO SCH ×2 (10:21→18:35)
[2017-11-24] MEDS: FERROUS SULFATE 325 MG TABLET PO SCH ×2 (10:21→18:35)
[2017-11-24] MEDS: SENNOSIDES/DOCUSATE 8.6-50 MG 1 EACH TABLET PO SCH (10:21)
[2017-11-24] MEDS: PRENATAL VITAMIN W DHA CAPSULE PO SCH (10:21)
--- NOTE | 2017-11-24 12:13 | PDOC PROGRESS REPORT ---
Subjective-OB Progress Note for:: 11/24/17 Subjective: Pt doing well, no concerns. She reports light bleeding, reg diet and is voiding without difficulty. Physical Exam (OB) Vital Signs: Temp Pulse Resp BP Pulse Ox 98.1 F 60 14 111/65 98 11/24/17 08:15 11/24/17 08:15 11/24/17 08:15 11/24/17 08:15 11/24/17 08:15 Intake & Output 11/23/17 11/24/17 11/25/17 06:59 06:59 06:59 Weight 55.8 kg - Lochia Lochia Amount: Scant < 10 ml Lochia Color: Rubra/Red - Abdomen Description: Soft, Round Hernia Present: No Fundal Description: Firm, Midline Fundal Height: u/u - u/2 Objective-Diagnostic Laboratory: 11/24/17 00:31 11/23/17 11/24/17 11/24/17 23:45 00:31 00:31 WBC 14.2 H RBC 3.82 Hgb 11.6 L Hct 33.6 L MCV 88 MCH 30.4 MCHC 34.5 RDW 15.1 H Plt Count 281 Seg Neutrophils % 76.0 Lymphocytes % 15.3 Monocytes % 8.3 Eosinophils % 0.2 Basophils % 0.2 Absolute Neutrophils 10.8 H Absolute Lymphocytes 2.2 Absolute Monocytes 1.2 Absolute Eosinophils 0.0 Absolute Basophils 0.0 Urine Color YELLOW Urine Appearance CLEAR Urine pH 7.0 Ur Specific [place] 1.022 Urine Protein 30 H Urine Glucose (UA) NEGATIVE Urine Ketones 100 H Urine Blood MODERATE H Urine Nitrite NEGATIVE Ur Leukocyte Esterase LARGE H Blood Type A POSITIVE Antibody Screen POSITIVE Assessment and Plan(PN) - Assessment and Plan (1) Acute blood loss anemia Is this a current diagnosis for this admission?: Yes (2) Vaginal delivery Is this a current diagnosis for this admission?: Yes - Time Spent with Patient Time with patient: Less than 15 minutes Medications reviewed and adjusted accordingly: Yes - Disposition Anticipated Discharge: Home Within: within 24 hours
[2017-11-25] MEDS: IBUPROFEN 800 MG TABLET PO SCH ×3 (06:05→22:24)
[2017-11-25 07:24] LABS: HEMATOCRIT 32.4 % (36.0-47.0); HEMOGLOBIN 11.2 g/dL (12.0-15.5); MEAN CORPUSCULAR HEMOGLOBIN 30.6 pg (27.0-33.4); MEAN CORPUSCULAR HGB CONC 34.5 g/dL (32.0-36.0); MEAN CORPUSCULAR VOLUME 89 fl (80-97); PLATELET COUNT 184 10^3/uL (150-450); RED BLOOD COUNT 3.67 10^6/uL (3.72-5.28); RED CELL DISTRIBUTION WIDTH 15.1 % (11.5-14.0); WHITE BLOOD COUNT 10.4 10^3/uL (4.0-10.5)
--- NOTE | 2017-11-25 09:14 | PDOC PROGRESS REPORT ---
Subjective-OB Progress Note for:: 11/25/17 Subjective: Doing well, no c/o, breast/bottle Physical Exam (OB) Vital Signs: Temp Pulse Resp BP Pulse Ox 97.7 F 70 18 107/49 L 99 11/25/17 08:17 11/25/17 08:17 11/25/17 08:17 11/25/17 08:17 11/25/17 08:17 Intake & Output 11/24/17 11/25/17 11/26/17 06:59 06:59 06:59 Weight 55.8 kg - PIH/Pre-Eclampsia DTR's: 1 + Clonus: Negative Headache: Absent Epigastric Pain: No Visual Changes: No - Lochia Lochia Amount: Scant < 10 ml Lochia Color: Rubra/Red - Abdomen Description: Soft, Flat Hernia Present: No Fundal Description: Firm, Midline Fundal Height: u/u - u/2 Objective-Diagnostic Laboratory: 11/25/17 07:00 11/25/17 07:00 WBC 10.4 RBC 3.67 L Hgb 11.2 L Hct 32.4 L MCV 89 MCH 30.6 MCHC 34.5 RDW 15.1 H Plt Count 184 Assessment and Plan(PN) - Assessment and Plan (1) Vaginal delivery Is this a current diagnosis for this admission?: Yes (2) Acute blood loss anemia Is this a current diagnosis for this admission?: Yes - Time Spent with Patient Time with patient: Less than 15 minutes Medications reviewed and adjusted accordingly: Yes - Disposition Anticipated Discharge: Home Within: within 24 hours
[2017-11-25] MEDS: FAMOTIDINE 20 MG TABLET PO SCH ×2 (10:12→22:24)
[2017-11-25] MEDS: PRENATAL VITAMIN W DHA CAPSULE PO SCH (10:12)
[2017-11-25] MEDS: FERROUS SULFATE 325 MG TABLET PO SCH ×2 (10:12→19:20)
[2017-11-25] MEDS: DOCUSATE SODIUM 100 MG CAPSULE PO SCH ×2 (10:12→19:19)
[2017-11-25] MEDS: SENNOSIDES/DOCUSATE 8.6-50 MG 1 EACH TABLET PO SCH (10:12)
[2017-11-26] MEDS: IBUPROFEN 800 MG TABLET PO SCH (06:11)
[2017-11-26 08:15] VITALS: BP 114/59
[2017-11-26] MEDS ORDERED: ACETAMINOPHEN 325 MG TABLET ONE (08:40)
[2017-11-26] MEDS ORDERED: ACETAMINOPHEN 325 MG TABLET PO PRN (08:51)
--- NOTE | 2017-11-26 09:25 | PDOC DISCHARGE SUMMARY ---
Final Diagnosis Discharge Date: 11/26/17 - Final Diagnosis (1) Normal course Is this a current diagnosis for this admission?: Yes (2) Acute blood loss anemia Is this a current diagnosis for this admission?: Yes (3) Vaginal delivery Is this a current diagnosis for this admission?: Yes Discharge Data - Discharge Medication Prescriptions: Ibuprofen [Motrin 800 mg Tablet] 800 mg PO Q8 PRN #60 tablet PRN Reason: Pain Scale Of 3 Home Medications: No122/Iron/Folic Acid [ Multi Tablet] 1 tab PO DAILY 10/21/17 Ibuprofen [Motrin 800 mg Tablet] 800 mg PO Q8 PRN #60 tablet 11/26/17 Reason(s) for Admission: Onset of Labor Procedures: Ultrasound Intrapartum Procedure(s): Spontaneous Vaginal Delivery Complication(s): Hemorrhage-Uterine Atony - Diagnosis Test Laboratory: Temp Pulse Resp BP Pulse Ox 98.3 F 59 L 18 114/59 L 98 11/26/17 07:46 11/26/17 07:46 11/26/17 07:46 11/26/17 07:46 11/26/17 07:46 11/23/17 11/24/17 11/25/17 23:45 00:31 07:00 RBC 3.82 3.67 L Hgb 11.6 L 11.2 L Hct 33.6 L 32.4 L Urine Opiates Screen NEGATIVE - Discharge information/Instructions Discharge Activity: Activity As Tolerated, Pelvic Rest Discharge Diet: As Tolerated, Regular Disposition: HOME, SELF-CARE Follow up with: [facility] in: 4, Weeks
[2017-11-26] MEDS: SENNOSIDES/DOCUSATE 8.6-50 MG 1 EACH TABLET PO SCH (09:43)
[2017-11-26] MEDS: FERROUS SULFATE 325 MG TABLET PO SCH (09:43)
[2017-11-26] MEDS: FAMOTIDINE 20 MG TABLET PO SCH (09:43)
[2017-11-26] MEDS: DOCUSATE SODIUM 100 MG CAPSULE PO SCH (09:43)
[2017-11-26] MEDS: PRENATAL VITAMIN W DHA CAPSULE PO SCH (09:44)
== END 2017-11-26 10:30 | disposition home or self-care (01) | DRG 806 ==
LOC: LC 23:37 → LR 11-24 00:04 → 2S 11-24 03:15
PROVIDERS: ADMIT Obstetrics & Gynecology; ATTEND Obstetrics & Gynecology
PROC: 10E0XZZ Delivery of Products of Conception, External Approach (ICD-10-PCS; principal; 2017-11-24)
PROC: 4A1HXCZ Monitoring of Products of Conception, Cardiac Rate, External Approach (ICD-10-PCS; 2017-11-24)
DX: O62.3 Precipitate labor (principal); O72.1 Other immediate postpartum hemorrhage; D62 Acute posthemorrhagic anemia; O99.02 Anemia complicating childbirth; O69.1XX0 Labor and delivery complicated by cord around neck, with compression, not applicable or unspecified; O24.429 Gestational diabetes mellitus in childbirth, unspecified control; Z3A.38 38 weeks gestation of pregnancy; Z37.0 Single live birth
CPT/HCPCS: 36415; 80307; 80349; 81005; 85025; 85027; 86592; 86850; 86870; 86900; 86901; G0480; J2590; J3490

== ENCOUNTER 2018-01-04 17:17 | Emergency (ER) | payer OTHER ==
[2018-01-04] MEDS ORDERED: DEXAMETHASONE SOD PHOS INJ 10 MG/1 ML VIAL IM ONE (17:54)
--- NOTE | 2018-01-04 18:52 | ER Document Report ---
ED Respiratory Problem - General Chief Complaint: Cough Stated Complaint: COUGH,CHILLS,CONGESTION Time Seen by Provider: 01/04/18 17:43 Mode of Arrival: Ambulatory Information source: Patient Notes: Patient is a 22-year-old female comes emergency room complaining of runny nose congestion cough. Patient states she is on amoxicillin currently for tooth infection and she is been taking Benadryl but her nose is running and running. She denies any fever. Patient has 5 children and a in the house. She is currently not breast-feeding and she states that all of her kids have been sick with the exception of her in the child she brought tonight. TRAVEL OUTSIDE OF THE [place] IN LAST 30 DAYS: No - HPI Patient complains to provider of: Cough Onset: Other - 3 days Duration: Continuous, Worse/persistent Quality of pain: Achy Severity: Moderate Pain Level: 2 Short of Breath: Mild Cough: Nonproductive Sputum amount: None Similar symptoms previously: No Recently seen / treated by doctor: No - Related Data Allergies/Adverse Reactions: latex Allergy (Verified 01/04/18 17:18) Past Medical History - General Information source: Patient - Social History Smoking Status: Never Smoker Cigarette use (# per day): No Chew tobacco use (# tins/day): No Smoking Education Provided: No Frequency of alcohol use: None Drug Abuse: None Family History: Reviewed & Not Pertinent Patient has suicidal ideation: No Patient has homicidal ideation: No Renal/ Medical History: Denies: Hx Peritoneal Dialysis - Immunizations Immunizations up to date: Yes Hx Diphtheria, Pertussis, Tetanus Vaccination: Yes Review of Systems - Review of Systems Constitutional: No symptoms reported EENT: Nose congestion, Nose discharge, Sinus pressure, Sinus discharge, Throat pain Cardiovascular: No symptoms reported Respiratory: See HPI, Cough, Wheezing Gastrointestinal: No symptoms reported Genitourinary: No symptoms reported Female Genitourinary: No symptoms reported Musculoskeletal: No symptoms reported Skin: No symptoms reported Hematologic/Lymphatic: No symptoms reported Neurological/Psychological: No symptoms reported -: Yes All other systems reviewed and negative Physical Exam - Vital signs Vitals: Temp Pulse Resp BP Pulse Ox 98.7 F 113 H 18 106/67 97 01/04/18 17:27 01/04/18 17:27 01/04/18 17:27 01/04/18 17:27 01/04/18 17:27 Interpretation: Hypotensive, Tachycardic - Notes Notes: PHYSICAL EXAMINATION: GENERAL: Patient is a well-nourished well-developed 22-year-old female who is in no apparent distress at the time of exam but does appear fatigued and slightly pale. HEAD: Atraumatic, normocephalic. EYES: Pupils equal round and reactive to light, extraocular movements intact, conjunctiva are normal. ENT: Examination head and upper airway showed nasal mucosa to be very erythematous and edematous with rhinorrhea noted. Rhinorrhea is clear. Patient has no maxillary tenderness to palpation but some mild frontal tenderness to palpation. Bilateral TMs appear normal there is no air-fluid levels noted at this time. Full examination posterior pharynx show she has moderate amount of postnasal drainage in the posterior pharynx that is yellowish -green in color. She also has some mildly enlarged tonsils with no exudate. Uvula is midline there is no encroachment and airway is patent. NECK: Normal range of motion, supple without lymphadenopathy LUNGS: Auscultation patient's lung hardwick show she has bilateral breath sounds breath sounds are increased throughout she has a faint inspiratory and expiratory wheeze. There is no rhonchi heard there is no rales heard.. HEART: tachycardic rate and rhythm without murmur Female : deferred Musculoskeletal: Normal range of motion, no pitting or edema. No cyanosis. NEUROLOGICAL: Normal speech, normal gait. Normal sensory, motor exams PSYCH: Normal mood, normal affect. SKIN: Warm, Dry, normal turgor, no rashes or lesions noted. Course - Re-evaluation Re-evalutation: 01/04/18 18:52 Patient looks very run down. With 5 kids all been sick in a in the house and believes she is burning a candle at both ends. She also has some wheezing she has an upper respiratory infection for sure most likely viral because she is on antibiotics already. At this point I am going out on the steroid taper and I will put her on some Sudafed to dry her up. And she will have her follow-up with her primary care because if she is doing the above and beyond as a mother she does not take care of herself. - Vital Signs Vital signs: Temp Pulse Resp BP Pulse Ox 98.7 F 113 H 18 106/67 97 01/04/18 17:27 11/20/18 17:27 01/04/18 17:27 01/04/18 17:27 01/04/18 17:27 Discharge - Discharge Clinical Impression: Wheeze URI (upper respiratory infection) Qualifiers: URI type: unspecified viral URI Qualified Code(s): J06.9 - Acute upper respiratory infection, unspecified Condition: Stable Disposition: HOME, SELF-CARE Instructions: Acetaminophen, Upper Respiratory Illness ([facility]), Viral Syndrome ( [facility]) Additional Instructions: Home and rest. I believe that you just acquired an upper respiratory infection that is probably viral in nature since all of her kids are headed. At this point you can finish your antibiotics for your tooth. Stop the Benadryl. Let us put you on something that would dry you up since you got this runny nose. This put you on some Sudafed. And for the wheezing and congestion loss of the joint steroid taper. Seeing as how you are a mother of 5 in all of been sick I think it is time also that you follow-up with your primary for a check. You can help the kids if you are sick yourself. Prescriptions: Prednisone 10 mg PO ASDIR 6 Days #1 [id number] Pseudoephedrine HCl [Sudafed 12 Hour] 120 mg PO BID #20 tablet.er Referrals: MACKENZIE RUIZ MD [Primary Care Provider] - Follow up as needed
[2018-01-04 20:06] VITALS: BP 110/64
== END 2018-01-04 20:06 | disposition home or self-care (01) ==
LOC: ER 17:17
DX: J06.9 Acute upper respiratory infection, unspecified (principal); B97.89 Other viral agents as the cause of diseases classified elsewhere; R05 Cough; R09.81 Nasal congestion; J34.89 Other specified disorders of nose and nasal sinuses; R06.2 Wheezing; R09.82 Postnasal drip; J35.1 Hypertrophy of tonsils; R00.0 Tachycardia, unspecified; K04.7 Periapical abscess without sinus; Z91.040 Latex allergy status
CPT/HCPCS: 99283; 96372; J1100